=== PATIENT | male | born 1980 | race Caucasian/White ===

== ENCOUNTER → 2016-04-01 | Outpatient (CLI) | payer OTHER | LOC: RAD 14:59 | PROVIDERS: ATTEND Family Medicine | DX: R06.09 Other forms of dyspnea (principal) | CPT/HCPCS: 93306 ==

== ENCOUNTER → 2016-04-08 | Outpatient (REF) | payer OTHER ==
[2016-04-08 16:03] LABS: BASOPHILS % (AUTO) 0 % (0-2); EOSINOPHILS # (AUTO) 0.3 10^3uL; EOSINOPHILS % (AUTO) 4 % (0-4); LYMPHOCYTES # (AUTO) 2.3 X10^3; MEAN CORPUSCULAR HGB CONC 35.2 g/dL (31.0-37.0); MEAN CORPUSCULAR VOLUME 90 FL (80-100); MEAN PLATELET VOLUME 11.9 FL (6.0-9.5); MONOCYTES # (AUTO) 0.8 X10^3; MONOCYTES % (AUTO) 14 % (3-11); NEUTROPHILS # (AUTO) 2.6 X10^3; NEUTROPHILS % (AUTO) 43 % (51-67); PLATELET COUNT 117 10^3uL (150-450); WHITE BLOOD COUNT 5.97 10^3uL (4.0-11.0)
[2016-04-08 16:13] LABS: ALBUMIN 3.9 g/dL (3.4-5.0); ANION GAP 14.8 MEQ/L (3-15); CALCULATED IONIZED CALCIUM 3.6 mg/dL (3.8-4.6); TOTAL PROTEIN 8.1 g/dL (6.4-8.5)
[2016-04-08 16:18] LABS: MEAN CORPUSCULAR HEMOGLOBIN 31.7 PG (26.0-34.0)
[2016-04-11 14:33] LABS: HEPATITIS B CORE ABY IGM Indeterminate; HEPATITIS B SURFACE ANTIGEN C Positive
== END ==
LOC: LAB 15:36
PROVIDERS: ATTEND Family Medicine
DX: R76.8 Other specified abnormal immunological findings in serum (principal); R79.89 Other specified abnormal findings of blood chemistry; R60.0 Localized edema
CPT/HCPCS: 80053; 85025; 85610; 85730; 86704; 87340; 87350; 87517

== ENCOUNTER → 2016-04-22 | Outpatient (CLI) | payer OTHER | LOC: RAD 09:44 | PROVIDERS: ATTEND Neuromusculoskeletal Medicine, Sports Medicine | DX: Z02.71 Encounter for disability determination (principal) | CPT/HCPCS: 72100; 73502 ==

== ENCOUNTER → 2016-04-29 | Outpatient (REF) | payer OTHER ==
[2016-04-29 13:20] LABS: ALBUMIN 3.3 g/dL (3.4-5.0); ANION GAP 11.1 MEQ/L (3-15); CALCULATED IONIZED CALCIUM 3.8 mg/dL (3.8-4.6); TOTAL PROTEIN 7.1 g/dL (6.4-8.5)
== END ==
LOC: LAB 12:04
PROVIDERS: ATTEND Family Medicine
DX: B16.9 Acute hepatitis B without delta-agent and without hepatic coma (principal)
CPT/HCPCS: 80053

== ENCOUNTER → 2016-05-13 | Outpatient (REF) | payer OTHER ==
[2016-05-13 11:14] LABS: BASOPHILS % (AUTO) 0 % (0-2); EOSINOPHILS # (AUTO) 0.2 10^3uL; EOSINOPHILS % (AUTO) 4 % (0-4); MEAN CORPUSCULAR VOLUME 91 FL (80-100); MONOCYTES # (AUTO) 0.5 X10^3; MONOCYTES % (AUTO) 11 % (3-11); NEUTROPHILS % (AUTO) 63 % (51-67); PLATELET COUNT 110 10^3uL (150-450); WHITE BLOOD COUNT 4.69 10^3uL (4.0-11.0)
[2016-05-13 11:16] LABS: ALBUMIN 3.7 g/dL (3.4-5.0); ANION GAP 13.4 MEQ/L (3-15); CALCULATED IONIZED CALCIUM 3.6 mg/dL (3.8-4.6); TOTAL PROTEIN 7.9 g/dL (6.4-8.5)
[2016-05-13 11:44] LABS: MEAN CORPUSCULAR HEMOGLOBIN 32.3 PG (26.0-34.0); MEAN CORPUSCULAR HGB CONC 35.6 g/dL (31.0-37.0)
== END ==
LOC: LAB 10:04
PROVIDERS: ATTEND Family Medicine
DX: E66.01 Morbid (severe) obesity due to excess calories (principal); M51.36 Other intervertebral disc degeneration, lumbar region; B18.1 Chronic viral hepatitis B without delta-agent; B16.9 Acute hepatitis B without delta-agent and without hepatic coma
CPT/HCPCS: 80053; 85025; 86692

== ENCOUNTER 2016-07-17 16:22 | Emergency (ER) | payer OTHER ==
[~2016-07-17] VITALS: Ht 175.3 cm; Wt 156.9 kg
[2016-07-17] MEDS ORDERED: ORPH100T PO (16:56)
[2016-07-17] MEDS ORDERED: SPIR25TA PO (16:56)
[2016-07-17] MEDS ORDERED: FRSM40T PO (16:56)
[2016-07-17] MEDS ORDERED: OXYC10TA7 PO (16:56)
[2016-07-17 17:16] LABS: BASOPHILS % (AUTO) 0 % (0-2); EOSINOPHILS # (AUTO) 0.2 10^3uL; EOSINOPHILS % (AUTO) 2 % (0-4); LYMPHOCYTES # (AUTO) 1.7 X10^3; MEAN CORPUSCULAR HGB CONC 35.3 g/dL (31.0-37.0); MEAN CORPUSCULAR VOLUME 91 FL (80-100); MONOCYTES # (AUTO) 0.8 X10^3; MONOCYTES % (AUTO) 10 % (3-11); NEUTROPHILS # (AUTO) 4.9 X10^3; NEUTROPHILS % (AUTO) 65 % (51-67); PLATELET COUNT 132 10^3uL (150-450); WHITE BLOOD COUNT 7.51 10^3uL (4.0-11.0)
--- NOTE | 2016-07-17 17:19 | Diagnostic Imaging Report ---
INDICATION: Chest pain. Frontal chest obtained at 5:01 p.m. and is compared with 03/25/2016. FINDINGS: Heart is borderline in size. Mediastinal silhouette is unremarkable. There is mild central vascular prominence which appears chronic and unchanged compared to the prior study. There is no acute edema or infiltrate or pleural fluid. IMPRESSION: Borderline heart size with mild central vascular prominence. No edema or infiltrate or pleural fluid. Dictated by: Dictated on workstation # [id number]
[2016-07-17 17:25] LABS: ALKALINE PHOSPHATASE 158 U/L (38-126); ANION GAP 14.7 MEQ/L (3-15); BUN/CREATININE RATIO 19 (10-20); CALCULATED IONIZED CALCIUM 3.7 mg/dL (3.8-4.6); TOTAL PROTEIN 8.2 g/dL (6.4-8.5)
--- NOTE | 2016-07-17 18:02 | NUR ---
PT BROTHER ARRIVES & AT BEDSIDE. CL
[2016-07-17 19:49] VITALS: BP 112/69
== END 2016-07-17 18:17 | disposition home or self-care (01) ==
LOC: ED 16:23
DX: F43.9 Reaction to severe stress, unspecified (principal); F41.1 Generalized anxiety disorder
CPT/HCPCS: 36415; 71010; 80053; 84484; 85025; 93005; 93010; 99283; 99284

== ENCOUNTER 2016-07-31 23:32 | Emergency (ER) | payer OTHER ==
[~2016-07-31] VITALS: Ht 175.3 cm; Wt 157.5 kg
[~2016-07-31 23:32] MED LIST: FRSM40T PO; ORPH100T PO; OXYC10TA7 PO; SPIR25TA PO
--- OUTSIDE RECORDS SUMMARY | 2016-07-31 23:39 | XMS REPORT | Continuity of Care Document ---
Author Author [facility] Address Unknown Phone Unavailable Support Name Relationship Address Phone JOEL NAQVI MD Caregiver [address] [place] [address] NAVEEN [place] [address] Insurance Providers Payer Name Policy Number Subscriber Name Relationship Self Pay Fin Health Safety Coordinator Review [id number] Norman Jefferson 18 Self / Same As Patient Advance Directives Directive Response Recorded Date/Time Advanced Directives No 07/17/16 4:32pm Chief Complaint and Reason for Visit Chief Complaint Malaise Reason for Visit Anxiety Problems Active Problems Medical Problem Onset Date Status Anxiety ~07/17/2016 Acute Medications Current Home Medications Medication Dose Units Route Directions Days/Qty Instructions Start Date Orphenadrine Citrate 100 Mg 100 Mg ORAL Twice A Day 07/17/16 Spironolactone 25 Mg 25 Mg ORAL Daily 07/17/16 Furosemide 40 Mg 40 Mg ORAL Daily 07/17/16 Oxycodone Hcl 10 Mg 2 Tab ORAL Every 4HRS for Pain 07/17/16 Social History Query Response Start Date Stop Date Smoking Status Former smoker Hospital Discharge Instructions No hospital discharge instructions. Plan of Care Discharge Date 07/17/16 6:17pm Disposition 01 HOME OR SELF-CARE Condition at Discharge Stable Instructions/Education Provided Stress Prescriptions See Medication Section Additional Instructions/Education Home to rest tonight. Take 50 mg of Benadryl prior to bed.. If symptoms persist or worsen follow-up with family physician Some of your test results may not be complete prior to your leaving the Emergency Department. The Emergency Department is not authorized to give test results over the phone. Please contact the doctor's office listed in this packet of information for your final results. Follow up with your primary care physician or return to the Emergency Department for worsening or worrisome symptoms. * Emergency Department phone number: [phone], x [phone]* MEDICAL RECORD If you need copies of your X-rays, call [phone]. If you need copies of your medical record, including lab results, a signed authorization for release of records will be required. A telephone call for release of Health Information is not allowed. BILLING Billing can sometimes be confusing and frustrating. To help avoid confusion in the future, please take a moment to acquaint yourself with the billing parties for services. SERVICE BILLING LIBERTARIAN Emergency Room Services [facility] Physician Services [facility] Patients will receive bills for services from the appropriate provider. If you have any questions about your [facility] bill, our staff will be happy to assist you. Please call [phone], and ask for the billing department. THANK YOU for choosing [facility] as your emergency care provider! Care Plan and Goals ~~Discharge Care Plan~~ Problem: Problems with coping. Goal: Patient will use appropriate resources to deal with life situations. Instructions: Call [employer] hotline @ for assistance. Follow up with screener as directed. Functional Status No functional status results. Allergies, Adverse Reactions, Alerts No known allergies. Immunizations No immunization records. Vital Signs Acute Vital Signs Vital Response Date/Time Temperature (Fahrenheit) 97.9 07/17/2016 4:32pm Pulse 83 bpm 07/17/2016 7:49pm Respirations 14 07/17/2016 7:49pm Height 5 ft 9 in Weight 345 lb Body Mass Index 51.0 kg/m^2 Results Laboratory Results Test Name Result Units Flags Reference Collection Date/Time Result Date/ Time Comments White Blood Count 7.51 10^3uL 4.0-11.0 07/17/2016 5:10pm 07/17/2016 5: 17pm Red Blood Count 4.85 10^6uL 4.50-5.50 07/17/2016 5:1007/17/2016 5: 17pm Hemoglobin 15.5 g/dL 13.5-17.0 07/17/2016 5:10pm 07/17/2016 5:17pm Hematocrit 43.90 % 39.00-50.00 07/17/2016 5:1007/17/2016 5:17pm Mean Corpuscular Volume 91 FL 80-100 07/17/2016 5:1007/17/2016 5: 17pm Mean Corpuscular Hemoglobin 32.0 PG 26.0-34.0 07/17/2016 5:102016 5:17pm Mean Corpuscular Hemoglobin Concent 35.3 g/dL 31.0-37.0 07/17/2016 5: 1007/17/2016 5:17pm Red Cell Distribution Width 13.0 % 11.8-15.6 07/17/2016 5:2016 5:17pm Platelet Count 132 10^3uL L 150-450 07/17/2016 5:1007/17/2016 5:17pm Mean Platelet Volume 11.0 FL H 6.0-9.5 07/17/2016 5:1007/17/2016 5: 17pm Neutrophils (%) (Auto) 65 % 51-67 07/17/2016 5:07/17/2016 5:17pm Lymphocytes (%) (Auto) 23 % 20-46 07/17/2016 5:07/17/2016 5:17pm Monocytes (%) (Auto) 10 % 3-11 07/17/2016 5:07/17/2016 5:17pm Eosinophils (%) (Auto) 2 % 0-4 07/17/2016 5:1007/17/2016 5:17pm Basophils (%) (Auto) 0 % 0-2 07/17/2016 5:07/17/2016 5:17pm Neutrophils # (Auto) 4.9 X10^3 07/17/2016 5:1007/17/2016 5:17pm Lymphocytes # (Auto) 1.7 X10^3 07/17/2016 5:1007/17/2016 5:17pm Monocytes # (Auto) 0.8 X10^3 07/17/2016 5:10pm 07/17/2016 5:17pm Eosinophils # (Auto) 0.2 10^3uL 07/17/2016 5:10pm 07/17/2016 5:17pm Basophils # (Auto) 0.0 10^3uL 07/17/2016 5:10pm 07/17/2016 5:17pm Sodium Level 143 mmol/L 135-150 07/17/2016 5:1007/17/2016 5:25pm Potassium Level 4.0 mmol/L 3.5-5.1 07/17/2016 5:10pm 07/17/2016 5:25pm Chloride Level 103 mmol/L 98-108 07/17/2016 5:10pm 07/17/2016 5:25pm Carbon Dioxide Level 29 mmol/L 22-29 07/17/2016 5:1007/17/2016 5: 25pm Anion Gap 14.7 MEQ/L 3-15 07/17/2016 5:1007/17/2016 5:25pm Blood Urea Nitrogen 15 mg/dL 7-07/17/2016 5:1007/17/2016 5:25pm Creatinine 0.77 mg/dL L 0.8-1.5 07/17/2016 5:1007/17/2016 5:25pm BUN/Creatinine Ratio 19 -07/17/2016 5:07/17/2016 5:25pm Estimat Glomerular Filtration Rate 137.6 07/17/2016 5:2016 5:25pm Estimated GFR (Non- 113.7 07/17/2016 5:2016 5:25pm Glucose Level 81 mg/dL # 70-110 07/17/2016 5:1007/17/2016 5:25pm Calculated Osmolality 275 mosm/L L 280-300 07/17/2016 5:07/17/2016 5:25pm Calcium Level 9.2 mg/dL 8.8-10.8 07/17/2016 5:1007/17/2016 5:25pm Calcium/Ionized Calcium Ratio 3.7 mg/dL L 3.8-4.6 07/17/2016 5:10pm 5:25pm Total Bilirubin 0.7 mg/dL 0.1-1.0 07/17/2016 5:10pm 07/17/2016 5:25pm Alkaline Phosphatase 158 U/L H 38-126 07/17/2016 5:10pm 07/17/2016 5: 25pm Aspartate Amino Transf (AST/SGOT) 59 U/L H 15-37 07/17/2016 5:10pm 07/17 5:25pm Alanine Aminotransferase (ALT/SGPT) 72 U/L H 30-65 07/17/2016 5:10pm 5:25pm Troponin I < 0.012 ng/mL 0.010-0.080 07/17/2016 5:10pm 07/17/2016 5: 37pm Total Protein 8.2 g/dL 6.4-8.5 07/17/2016 5:10pm 07/17/2016 5:25pm Albumin 4.0 g/dL 3.4-5.0 07/17/2016 5:10pm 07/17/2016 5:25pm Albumin/Globulin Ratio 0.952 L 1.1-1.8 07/17/2016 5:10pm 07/17/2016 5: 25pm Procedures No known history of procedures. Encounters Encounter Location Arrival/Admit Date Discharge/Depart Date Attending Provider Departed Emergency Room [facility] 07/17/16 4:23pm 07/17/16 6:17pm JOEL NAQVI MD Recent Diagnosis
[2016-08-01] MEDS ORDERED: FUROSEMIDE 40 MG/4 ML (LASIX) VIAL IV ONE (00:15)
[2016-08-01 01:28] LABS: BASOPHILS % (AUTO) 0 % (0-2); EOSINOPHILS # (AUTO) 0.3 10^3uL; EOSINOPHILS % (AUTO) 4 % (0-4); LYMPHOCYTES # (AUTO) 1.6 X10^3; MEAN CORPUSCULAR HGB CONC 34.5 g/dL (31.0-37.0); MEAN CORPUSCULAR VOLUME 92 FL (80-100); MEAN PLATELET VOLUME 11.9 FL (6.0-9.5); MONOCYTES # (AUTO) 0.6 X10^3; MONOCYTES % (AUTO) 9 % (3-11); NEUTROPHILS # (AUTO) 3.7 X10^3; NEUTROPHILS % (AUTO) 60 % (51-67); PLATELET COUNT 111 10^3uL (150-450)
[2016-08-01 01:37] LABS: MEAN CORPUSCULAR HEMOGLOBIN 31.7 PG (26.0-34.0)
[2016-08-01 01:38] LABS: ALBUMIN 3.8 g/dL (3.4-5.0); ANION GAP 13.7 MEQ/L (3-15); CALCULATED IONIZED CALCIUM 3.7 mg/dL (3.8-4.6); TOTAL PROTEIN 7.8 g/dL (6.4-8.5)
--- NOTE | 2016-08-01 02:35 | NUR ---
Pt voided 1075 ml after lasix IV. Pt states "I am feeling better now".
[2016-08-01 02:40] VITALS: BP 146/84
== END 2016-08-01 02:38 | disposition home or self-care (01) ==
LOC: EDUNIT# 23:32 → ED 23:34
DX: K74.60 Unspecified cirrhosis of liver (principal); B19.10 Unspecified viral hepatitis B without hepatic coma; R60.0 Localized edema; F17.210 Nicotine dependence, cigarettes, uncomplicated
CPT/HCPCS: 36415; 80053; 85025; 96374; 99283; J1940; 99282